=== PATIENT | female | born 1950 | race American Indian/Alaskan Native ===

== ENCOUNTER 2020-01-27 06:31 | Day surgery (SDC) | payer MEDICARE ==
[2020-01-27] MEDS ORDERED: ASPIRIN EC 325 MG TAB PO ONE (08:44)
[2020-01-27] MEDS ORDERED: SODIUM CHLORIDE 0.9% 500 ML 500 ML ONE (08:44)
[2020-01-27] MEDS ORDERED: CLOPIDOGREL 75 MG TAB ONE (09:32)
[2020-01-27] MEDS ORDERED: CLOPIDOGREL 75 MG TAB PO ONE (10:00)
[2020-01-27] MEDS ORDERED: HEPARIN/NS 5000 UNIT/500ML 1,000 ML IR ONE (10:05)
[2020-01-27] MEDS ORDERED: VERAPAMIL 5 MG/2 ML INJ ONE (10:05)
[2020-01-27] MEDS ORDERED: fentaNYL 100 MCG/2 ML INJ ONE (10:05)
[2020-01-27] MEDS ORDERED: HEPARIN 10,000 UNITS/10 ML VIAL ONE (10:05)
[2020-01-27] MEDS ORDERED: LIDOCAINE (2%) 20 MG/1 ML VIAL 20 ML MDV INFILTRATI ONE (10:05)
[2020-01-27] MEDS ORDERED: MIDAZOLAM 2 MG/2 ML INJ ONE (10:05)
[2020-01-27] MEDS ORDERED: NITROGLYCERIN SYRINGE 3 ML ONE (10:06)
--- NOTE | 2020-01-27 16:42 | Cardiac Catherization Report ---
REASON FOR PROCEDURE: Chest pain, coronary artery disease and abnormal thallium stress test. PROCEDURES: 1. Left heart catheterization. 2. Selective left and right coronary angiography. 3. Left ventricular angiography. 4. Sedation time start 10:27, end 11:06. DESCRIPTION OF PROCEDURE: The patient was prepped and draped in a sterile fashion after informed consent. The right radial cath site was prepped and draped after a negative Sy's test. The right radial artery was entered using Seldinger technique followed by placement of a 6-Albanian hydrophilic sheath. Routine radial cocktail was administered via the sheath. Selective left and right coronary angiography was performed using a #3.5 left Jelena and #4 right Jelena. A pigtail catheter was used for left ventricular angiography. The catheters were then removed, sheath removed and hemostasis achieved using a TR band. The patient was returned to the postprocedure unit in stable condition. There were no complications. FINDINGS: HEMODYNAMICS: Left ventricular end-diastolic pressure was 23, following coronary angiography. Ascending aortic pressure was 132/71. There was no significant pressure gradient on pullback across the aortic valve. CORONARY ANGIOGRAPHY: The left main coronary artery was free of significant disease. A stent was visible in the proximal to mid LAD. The stented segment was widely patent, no significant restenosis. Otherwise, mild diffuse atherosclerosis were noted of the proximal, mid and distal segments of the LAD as well as diagonal branches. Another stent was similarly found in the mid circumflex artery. The circumflex stent was also widely patent. Otherwise, mild diffuse atherosclerosis of the rest of the circumflex was noted. In addition, there was a 30-40% stenosis of the distal segment of the mid obtuse marginal, beyond this circumflex stented segment. The right coronary artery was a relatively small caliber, but dominant vessel. Another stent was located in the right coronary artery, covering the entire mid segment. The right coronary artery stent was also patent, but contained mild in-stent restenosis in its proximal third. There was an up to 20-30% luminal narrowing within the stented segment. Left ventricular systolic function was well preserved with ejection fraction of 50-55%. CONCLUSION: 1. Multivessel coronary artery disease, treated with multivessel stents. 2. Patent proximal to mid LAD stent. 3. Patent mid circumflex artery stent. 4. Patent mid right coronary artery stent, with mild in-stent restenosis. 5. Otherwise, no significant residual obstructive lesions. 6. Well preserved left ventricular systolic function, ejection fraction 50-55%. RECOMMENDATION: Aggressive risk factor modification, continue medical therapy. JOB# [id number] CA/NTS
[2020-01-29 14:32] LABS: BUN/Creatinine Ratio 20; Blood Urea Nitrogen 14 mg/dL (7-17); Calcium 8.6 mg/dL (8.4-10.2)
== END 2020-01-27 06:32 | disposition home or self-care (01) ==
LOC: CATH 06:31 → CATHLABREC 06:31
PROVIDERS: ATTEND Internal Medicine Cardiovascular Disease
DX: R07.89 Other chest pain (principal); R94.39 Abnormal result of other cardiovascular function study; I25.118 Atherosclerotic heart disease of native coronary artery with other forms of angina pectoris; T82.855A Stenosis of coronary artery stent, initial encounter; F17.210 Nicotine dependence, cigarettes, uncomplicated; E66.2 Morbid (severe) obesity with alveolar hypoventilation; E78.5 Hyperlipidemia, unspecified; K21.9 Gastro-esophageal reflux disease without esophagitis; M19.90 Unspecified osteoarthritis, unspecified site; E66.9 Obesity, unspecified; J44.9 Chronic obstructive pulmonary disease, unspecified; Z79.82 Long term (current) use of aspirin; Z72.89 Other problems related to lifestyle; Z98.61 Coronary angioplasty status; Y83.8 Other surgical procedures as the cause of abnormal reaction of the patient, or of later complication, without mention of misadventure at the time of the procedure; Y92.89 Other specified places as the place of occurrence of the external cause
CPT/HCPCS: 36415; 80048; 93005; 93458; 99156; 99157; C1894; J1644; J2250; J3010; J7040; Q9967

== ENCOUNTER 2020-12-31 21:56 | Observation (INO) | payer MEDICARE ==
--- NOTE | 2020-12-31 22:27 | Emergency Department Report ---
ED General Adult HPI - General Chief complaint: Weakness Stated complaint: LOW BLOOD COUNT/SOB PUI?: No Time Seen by Provider: 12/31/20 22:23 Source: patient Mode of arrival: Ambulatory Limitations: No Limitations - History of Present Illness Initial comments: Patient is a 70-year-old female who presents emergency with complaints of weakness, shortness of breath and low blood count. Patient states she had her blood checked at her primary care and they called her tonight because her hemoglobin was 6.0. Patient states she always is a busy monitor shortness of breath because of her cardiac conditions but lately her shortness of breath has been increased. Patient states that she has felt weak and fatigued. Patient states that her worsening shortness of breath been going on for approximately 1 week. Patient states her weakness and fatigue were going on for 1 week. Patient denies melena. Patient denies changes in her bowel habits. Patient denies change in the color of her stool. Patient denies abdominal pain. P atient denies chest pain. Patient denies headache. Patient denies loss of consciousness. Patient denies trauma. Patient states that she has never had a problem with her blood count. Patient denies nausea and vomiting. Patient states that her fatigue, weakness and shortness of breath are better with rest and worse with exertion and movement. Patient denies recent travel. Patient denies recent international travel. Patient denies exposure to the novel coronavirus. Patient denies sick contacts. Patient denies fever and chills. Patient denies cough. Patient denies diarrhea. Patient denies coming in contact with anybody with symptoms of the novel coronavirus. -: Sudden Consistency: constant Improves with: rest Worsens with: movement Associated Symptoms: malaise, shortness of breath, weakness. denies: confusion, chest pain, cough, diaphoresis, fever/chills, headaches, loss of appetite, nausea/vomiting, rash, seizure, syncope Treatments Prior to Arrival: none - Related Data Previous Rx's Medication Instructions Recorded Last Taken Type Aspirin EC [Halfprin EC] 81 mg PO QDAY #30 tablet 12/23/19 Unknown Rx AtorvaSTATin [Lipitor] 40 mg PO QHS #30 tablet 12/23/19 Unknown Rx Metoprolol Xl [Metoprolol 25 mg PO QDAY #30 tablet 12/23/19 Unknown Rx SUCCINATE ER TAB] Nicotine [Habitrol] 21 mg TD QDAY #14 patch 12/23/19 Unknown Rx Pantoprazole [Protonix TAB] 40 mg PO QDAY #30 tablet 12/23/19 Unknown Rx Allergies Allergy/AdvReac Type Severity Reaction Status Date / Time No Known Allergies Allergy Unverified 12/21/19 16:38 ED Review of Systems ROS: Stated complaint: LOW BLOOD COUNT/SOB Other details as noted in HPI Constitutional: malaise, weakness. denies: chills, fever Eyes: denies: eye pain, eye discharge, vision change ENT: denies: ear pain, throat pain Respiratory: see HPI, shortness of breath. denies: cough, wheezing Cardiovascular: denies: chest pain, palpitations Endocrine: no symptoms reported Gastrointestinal: denies: abdominal pain, nausea, diarrhea Genitourinary: denies: urgency, dysuria, discharge Musculoskeletal: denies: back pain, joint swelling, arthralgia Skin: denies: rash, lesions Neurological: as per HPI, weakness. denies: headache, paresthesias Psychiatric: denies: anxiety, depression Hematological/Lymphatic: denies: easy bleeding, easy bruising ED Past Medical Hx - Past Medical History Previous Medical History?: Yes Hx Hypertension: Yes Hx Heart Attack/AMI: Yes Hx Congestive Heart Failure: No Hx Diabetes: No Hx Arthritis: Yes Hx Asthma: No Hx COPD: No - Surgical History Past Surgical History?: Yes Hx Coronary Stent: Yes Additional Surgical History: BACK/ NECK - Family History Family history: no significant - Social History Smoking Status: Current Every Day Smoker Substance Use Type: None - Medications Home Medications: Home Medications Medication Instructions Recorded Confirmed Last Taken Type Aspirin EC [Halfprin EC] 81 mg PO QDAY #30 tablet 12/23/19 Unknown Rx AtorvaSTATin [Lipitor] 40 mg PO QHS #30 tablet 12/23/19 Unknown Rx Metoprolol Xl [Metoprolol 25 mg PO QDAY #30 tablet 12/23/19 Unknown Rx SUCCINATE ER TAB] Nicotine [Habitrol] 21 mg TD QDAY #14 patch 12/23/19 Unknown Rx Pantoprazole [Protonix TAB] 40 mg PO QDAY #30 tablet 12/23/19 Unknown Rx ED Physical Exam - General Limitations: No Limitations General appearance: alert, in no apparent distress - Head Head exam: Present: atraumatic, normocephalic - Eye Eye exam: Present: normal appearance - ENT ENT exam: Present: mucous membranes moist - Neck Neck exam: Present: normal inspection - Respiratory Respiratory exam: Present: normal lung sounds bilaterally. Absent: respiratory distress - Cardiovascular Cardiovascular Exam: Present: regular rate, normal rhythm. Absent: systolic murmur, diastolic murmur, rubs, gallop - GI/Abdominal GI/Abdominal exam: Present: soft, normal bowel sounds - Extremities Exam Extremities exam: Present: normal inspection - Back Exam Back exam: Present: normal inspection - Neurological Exam Neurological exam: Present: alert, oriented X3 - Psychiatric Psychiatric exam: Present: normal affect, normal mood - Skin Skin exam: Present: warm, dry, intact, normal color. Absent: rash ED Course Vital Signs 12/31/20 22:19 Temperature 99.0 F Pulse Rate 82 Respiratory 18 Rate Blood Pressure 120/54 O2 Sat by Pulse 100 Oximetry - Reevaluation(s) Reevaluation #1: I discussed all results with patient. I discussed plan of care with patient. P shelly agrees with plan of care and admission. Patient to be admitted to the hospitalist service. 12/31/20 23:52 - Consultations Consultation #1: Hospitalist consulted for admission. Hospitalist to admit patient. 12/31/20 23:52 ED Medical Decision Making - Lab Data Result diagrams: 12/31/20 22:48 12/31/20 22:48 - EKG Data -: EKG Interpreted by Me EKG shows normal: sinus rhythm, axis, intervals, ST-T waves Rate: normal - EKG Data Interpretation: other (Wide QRS and right bundle branch block) - Radiology Data Radiology results: report reviewed, image reviewed interpreted by me: Chest x-ray: No pneumonia, no pneumothorax, no foreign body, no osseous findings, no acute findings - Medical Decision Making Patient is a 70-year-old female that presents emergency room with complaints of shortness of breath, weakness fatigue, anemia. Patient states she saw her primary care and found to have a hemoglobin of 6. Patient states that her shortness of breath, weakness and fatigue started a week ago. Patient dates symptoms worsen. Patient states she does have basic amount of shortness of breath due to her cardiac conditions but her shortness of breath is worse. Patient denies any pain. Patient does not have a history of anemia. Patient denied melena. Patient denied any active bleeding. Patient had labs done which showed a hemoglobin of 6.5. Patient was typed and screened and is A positive. Patient transfused 1 unit of blood in the ER. Patient had an EKG which was negative for acute finding. Patient had a chest x-ray which was negative for ac fermín findings. I personally reviewed the EKG and chest x-ray. Patient admitted to the hospital service for further evaluation and treatment. Critical care time documented due to the multiple reassessments, prolonged time at the bedside, interpretation of diagnostics and labs. - Differential Diagnosis Anemia, shortness of breath, CHF, pneumonia, Critical Care Time: Yes Critical care time in (mins) excluding proc time.: 35 Critical care attestation.: If time is entered above; I have spent that time in minutes in the direct care of this critically ill patient, excluding procedure time. Critical Care Time: 35 minutes ED Disposition Clinical Impression: SOB (shortness of breath) Fatigue Qualifiers: Fatigue type: unspecified Qualified Code(s): R53.83 - Other fatigue Anemia Qualifiers: Anemia type: unspecified type Qualified Code(s): D64.9 - Anemia, unspecified Diastolic CHF Qualifiers: Heart failure chronicity: chronic Qualified Code(s): I50.32 - Chronic diastolic (congestive) heart failure Disposition: ADMITTED INPATIENT Is pt being admited?: Yes Does the pt Need Aspirin: No Condition: Critical Time of Disposition: 00:01
--- NOTE | 2020-12-31 22:58 | XRay Report ---
CHEST 1 VIEW INDICATION / CLINICAL INFORMATION: sob. weakness. FINDINGS: SUPPORT DEVICES: None. HEART / MEDIASTINUM: No significant abnormality. LUNGS / PLEURA: No significant pulmonary or pleural abnormality. No pneumothorax. ADDITIONAL FINDINGS: No significant additional findings. IMPRESSION: 1. No acute findings. Signer Name: Kane White MD Signed: 12/31/2020 10:54 PM Workstation Name: [id number]
[2020-12-31 23:17] LABS: INR 1.15 (0.87-1.13)
[2020-12-31 23:29] LABS: Hematocrit 21.1 % (30.3-42.9); Hemoglobin 6.5 gm/dl (10.1-14.3); Mean Corpuscular HGB Conc 31 % (30-34); Platelet Count 292 K/mm3 (140-440); Red Blood Count 3.18 M/mm3 (3.65-5.03)
[2020-12-31 23:30] LABS: Mean Corpuscular Volume 67 fl (79-97); Red Cell Distribution Width 21.9 % (13.2-15.2)
[2020-12-31 23:32] LABS: Alanine Aminotransferase 8 units/L (7-56); Albumin 3.7 g/dL (3.9-5); BUN/Creatinine Ratio 24; Blood Urea Nitrogen 19 mg/dL (7-17); Calcium 8.6 mg/dL (8.4-10.2); Hemolysis Index 0
[2020-12-31] MEDS ORDERED: SODIUM CHLORIDE 0.9% 500 ML 500 ML IV ONE (23:35)
[2021-01-01] MEDS ORDERED: ACETAMINOPHEN 325 MG TAB PO PRN (01:12)
[2021-01-01] MEDS ORDERED: MORPHINE 2 MG/1 ML INJ IV PRN (01:12)
[2021-01-01] MEDS ORDERED: SENNOSIDES 8.6 MG TAB PO PRN (01:12)
[2021-01-01] MEDS ORDERED: NALOXONE 0.4 MG/1 ML INJ IV PRN (01:12)
[2021-01-01] MEDS ORDERED: ONDANSETRON 4 MG/2 ML INJ IV PRN (01:12)
[2021-01-01] MEDS ORDERED: ALUM-MAG HYDROXIDE-SIMETHICONE 200-200-20MG/5ML ORAL LIQD 30 ML PO PRN (01:12)
[2021-01-01] MEDS ORDERED: MAGNESIUM HYDROXIDE (MOM) ORAL LIQD UDC PO PRN (01:12)
[2021-01-01] MEDS ORDERED: METOCLOPRAMIDE 10 MG/2 ML INJ IV PRN (01:12)
[2021-01-01] MEDS ORDERED: SODIUM CHLORIDE 0.9% 500 ML 500 ML ONE (03:08)
--- NOTE | 2021-01-01 03:49 | History and Physical Report ---
History of Present Illness Date of examination: 01/01/21 Date of admission: 01/01/21 00:01 Chief complaint: generalized weakness History of present illness: This is a 70-year-old female seen in ED at bedside. She presents to emergency room with complaints of generalized weakness, shortness of breath and low H/H/H. Patient reports history of anemia and blood transfusion. She said she was in in the doctor's office they did blood work on her and her H&H was low so she was told to come to the hospital emergency room for blood transfusion. Patient denies a history of GI bleed or changes in her bowel habits. She reported that she does not know why and no one has told her why her blood always drop. Patient admits tobacco use but denies the use of alcohol or illicit drug. Patient reported history of CHF and stent placement x5. Patient also has a past medical history of hypertension and arthritis. We will iron supplement multivitamins. Blood transfusion has been ordered and hemp-oncologist consulted. Past History Past Medical History: GERD, heart failure, hypertension, hyperlipidemia Past Surgical History: No surgical history Social history: lives with family, smoking, full code. denies: alcohol abuse, prescription drug abuse, IV drug use Family history: hypertension Medications and Allergies Allergies Allergy/AdvReac Type Severity Reaction Status Date / Time No Known Allergies Allergy Unverified 12/21/19 16:38 Home Medications Medication Instructions Recorded Confirmed Last Taken Type Aspirin EC [Halfprin EC] 81 mg PO QDAY #30 tablet 12/23/19 01/01/21 Unknown Rx AtorvaSTATin [Lipitor] 40 mg PO QHS #30 tablet 12/23/19 01/01/21 Unknown Rx Metoprolol Xl [Metoprolol 25 mg PO QDAY #30 tablet 12/23/19 01/01/21 Unknown Rx SUCCINATE ER TAB] Nicotine [Habitrol] 21 mg TD QDAY #14 patch 12/23/19 01/01/21 Unknown Rx Pantoprazole [Protonix TAB] 40 mg PO QDAY #30 tablet 12/23/19 01/01/21 Unknown Rx Active Meds: Active Medications Acetaminophen (Acetaminophen 325 Mg Tab) 650 mg PO Q4H PRN PRN Reason: Pain MILD(1-3)/Fever >100.5/ORTA Al Hydrox/Mg Hydrox/Simethicone (Alum-Mag Hydroxide-Simethicone [phone]/5ml Oral Liqd 30 Ml) 30 ml PO Q4H PRN PRN Reason: Indigestion Aspirin (Aspirin Ec 81 Mg Tab) 81 mg PO QDAY [facility] Atorvastatin Calcium (Atorvastatin 40 Mg Tab) 40 mg PO QHS [facility] Magnesium Hydroxide (Magnesium Hydroxide (Mom) Oral Liqd Udc) 30 ml PO Q4H PRN PRN Reason: Constipation Metoclopramide HCl (Metoclopramide 10 Mg/2 Ml Inj) 10 mg IV Q6H PRN PRN Reason: Nausea And Vomiting Metoprolol Succinate (Metoprolol Succinate Xl 25 Mg Tab) 25 mg PO QDAY [facility] Morphine Sulfate (Morphine 2 Mg/1 Ml Inj) 2 mg IV Q4H PRN PRN Reason: Pain, Moderate (4-6) Naloxone HCl (Naloxone 0.4 Mg/1 Ml Inj) 0.1 mg IV Q2MIN PRN PRN Reason: Res Rate </= 8 or 02 SAT < 92% Nicotine (Nicotine 21 Mg/24 Hr Patch) 21 mg TD QDAY [facility] Ondansetron HCl (Ondansetron 4 Mg/2 Ml Inj) 4 mg IV Q8H PRN PRN Reason: Nausea And Vomiting Oxycodone/Acetaminophen (Oxycodone /Acetaminophen 5-325mg Tab) 1 tab PO Q6H PRN PRN Reason: Pain, Moderate (4-6) Pantoprazole Sodium (Pantoprazole 40 Mg Tab) 40 mg PO QDAY [facility] Senna (Sennosides 8.6 Mg Tab) 8.6 mg PO Q12HR PRN PRN Reason: Constipation Sodium Chloride (Sodium Chloride 0.9% 10 Ml Flush Syringe) 10 ml IV BID [facility] Sodium Chloride (Sodium Chloride 0.9% 10 Ml Flush Syringe) 10 ml IV PRN PRN PRN Reason: LINE FLUSH Review of Systems Constitutional: anorexia, fatigue Ears, nose, mouth and throat: no epistaxis, no bleeding gums Cardiovascular: chest pain, shortness of breath Respiratory: no congestion, no wheezing Gastrointestinal: no abdominal pain, no change in bowel habits, no melena Rectal: no hemorrhoids Integumentary: no rash, no pruritis, no redness Neurological: no weakness Psychiatric: anxiety Endocrine: no weight change Hematologic/Lymphatic: no easy bruising, no easy bleeding, no lymphadenopathy, no lymphedema Allergic/Immunologic: no urticaria Exam - Constitutional Vitals: Temp Pulse Resp BP Pulse Ox 98.0 F 74 18 116/70 99 01/01/21 02:42 01/01/21 02:42 01/01/21 02:42 01/01/21 02:42 01/01/21 02:42 General appearance: Present: mild distress, obese - EENT Eyes: Present: PERRL ENT: hearing intact, clear oral mucosa - Neck Neck: Present: supple, normal ROM - Respiratory Respiratory effort: normal Respiratory: bilateral: CTA - Cardiovascular Heart Sounds: Present: S1 & S2. Absent: rub, click - Extremities Extremities: pulses symmetrical, No edema Peripheral Pulses: within normal limits - Abdominal General gastrointestinal: Present: soft, non-tender, non-distended, normal bowel sounds Female genitourinary: Present: normal - Integumentary Integumentary: Present: clear, warm, dry - Musculoskeletal Musculoskeletal: strength equal bilaterally, generalized weakness - Psychiatric Psychiatric: appropriate mood/affect, intact judgment & insight, cooperative - Neurologic Neurologic: CNII-XII intact, moves all extremities - Allied Health Allied health notes reviewed: nursing HEART Score - HEART Score Troponin: Troponin T < 0.010 ng/mL (0.00-0.029) 12/31/20 22:48 Results - Labs CBC & Chem 7: 12/31/20 22:48 12/31/20 22:48 Labs: Abnormal lab results 12/31/20 12/31/20 12/31/20 Range/Units 22:48 22:48 22:48 RBC 3.18 L (3.65-5.03) M/mm3 Hgb 6.5 L (10.1-14.3) gm/dl Hct 21.1 L (30.3-42.9) % MCV 67 L (79-97) fl MCH 20 L (28-32) pg RDW 21.9 H (13.2-15.2) % PT 15.2 H (12.2-14.9) Sec. INR 1.15 H (0.87-1.13) Chloride 107.2 H (98-107) mmol/L BUN 19 H (7-17) mg/dL Albumin 3.7 L (3.9-5) g/dL Crossmatch 12/31/20 Range/Units 22:55 RBC (3.65-5.03) M/mm3 Hgb (10.1-14.3) gm/dl Hct (30.3-42.9) % MCV (79-97) fl MCH (28-32) pg RDW (13.2-15.2) % PT (12.2-14.9) Sec. INR (0.87-1.13) Chloride (98-107) mmol/L BUN (7-17) mg/dL Albumin (3.9-5) g/dL Crossmatch See Detail Assessment and Plan - Patient Problems (1) Anemia Current Visit: Yes Status: Acute Plan to address problem: Patient has an H/h 6.5 on admission Patient reported history of anemia with blood transfusion We will transfuse packed red blood cells and will monitor H&H hemo-Oncologist consulted Check iron level and vitamin B12 level Ferrous sulfate and multivitamin supplement Patient denies history of GI bleedcheck stool for occult blood (2) Hyperlipidemia Current Visit: No Status: Acute Qualifiers: Plan to address problem: Continue statin (3) Gastroesophageal reflux disease Current Visit: No Status: Acute Qualifiers: Plan to address problem: Resume home PPI (4) Diastolic CHF Current Visit: Yes Status: Acute Qualifiers: Heart failure chronicity: chronic Qualified Code(s): I50.32 - Chronic diastolic (congestive) heart failure Plan to address problem: Continue cardioprotective measures- Patient is on room air Continue statinhold on anticoagulant due to anemia (5) Essential hypertension Current Visit: Yes Status: Acute Plan to address problem: Monitor blood pressure Continue home antihypertensive As needed hydralazine (6) DVT prophylaxis Current Visit: No Status: Acute Plan to address problem: SCDpatient anemic will hold on anticoagulant
[2021-01-01] MEDS ORDERED: hydrALAZINE 20 MG/1 ML INJ IV PRN (03:55)
[2021-01-01 05:41] LABS: Total Cells Counted 100
[2021-01-01 05:45] LABS: Anisocytosis 1+; Hypochromasia 2+
[2021-01-01 05:46] LABS: Target Cells 2+; Tear Drop Cells Few
[2021-01-01 05:47] LABS: Ovalocytes 1+
[2021-01-01 05:48] LABS: Platelet Estimate Consistent w Auto
[2021-01-01 06:44] LABS: Iron 23 ug/dL (37-170); Total Iron Binding Capacity 370 mcg/dL (250-450)
[2021-01-01 09:35] LABS: Hematocrit 22.9 % (30.3-42.9); Hemoglobin 6.8 gm/dl (10.1-14.3)
[2021-01-01] MEDS ORDERED: FERROUS SULFATE 325 MG TAB PO SCH (10:00)
--- NOTE | 2021-01-01 10:33 | Hem/Onc Consultation ---
History of Present Illness - History of Present Illness HEME DATA REVIEW CONSULT TO FOLLOW dx: anemia 70yo woman with CAD (s/p CABG), nl HCT in 2019, now with severe microcytic anemia eval for weakness, SOB. Per notes she has had RBC transfusion advised to go to [facility] for possible RBC transfusion data reviewed below Fe 23 TIBC 370, HCT 23 MCV 67 IMP: severe microcytic anemia due to iron defic presumed chronic bleeding r/o GI tract malignancy REC: RBC transfusion, then IV iron infusions eventually GI eval Laboratory Last Values WBC 7.0 K/mm3 (4.5-11.0) 12/31/20 22:48 Hgb 6.8 gm/dl (10.1-14.3) L 01/01/21 09:10 Hct 22.9 % (30.3-42.9) L 01/01/21 09:10 MCV 67 fl (79-97) L 12/31/20 22:48 Plt Count 292 K/mm3 (140-440) 12/31/20 22:48 INR 1.15 (0.87-1.13) H 12/31/20 22:48 Creatinine 0.8 mg/dL (0.6-1.2) 12/31/20 22:48 Iron 23 ug/dL (37-170) L 01/01/21 05:14 TIBC 370 mcg/dL (250-450) 01/01/21 05:14 Vitamin B12 753.8 pg/mL (211-911) 01/01/21 05:14 Crossmatch See Detail 12/31/20 22:55 Active Medications Acetaminophen (Acetaminophen 325 Mg Tab) 650 mg PO Q4H PRN PRN Reason: Pain MILD(1-3)/Fever >100.5/ORTA Al Hydrox/Mg Hydrox/Simethicone (Alum-Mag Hydroxide-Simethicone [phone]/5ml Oral Liqd 30 Ml) 30 ml PO Q4H PRN PRN Reason: Indigestion Aspirin (Aspirin Ec 81 Mg Tab) 81 mg PO QDAY [place] Atorvastatin Calcium (Atorvastatin 40 Mg Tab) 40 mg PO QHS [place] Ferrous Sulfate (Ferrous Sulfate 325 Mg Tab) 325 mg PO BID [place] Hydralazine HCl (Hydralazine 20 Mg/1 Ml Inj) 5 mg IV Q4H PRN PRN Reason: Hypertension Magnesium Hydroxide (Magnesium Hydroxide (Mom) Oral Liqd Udc) 30 ml PO Q4H PRN PRN Reason: Constipation Metoclopramide HCl (Metoclopramide 10 Mg/2 Ml Inj) 10 mg IV Q6H PRN PRN Reason: Nausea And Vomiting Metoprolol Succinate (Metoprolol Succinate Xl 25 Mg Tab) 25 mg PO QDAY [facility] Morphine Sulfate (Morphine 2 Mg/1 Ml Inj) 2 mg IV Q4H PRN PRN Reason: Pain, Moderate (4-6) Multivitamins (Multivitamins ,Therapeutic Tab) 1 each PO QDAY [facility] Naloxone HCl (Naloxone 0.4 Mg/1 Ml Inj) 0.1 mg IV Q2MIN PRN PRN Reason: Res Rate </= 8 or 02 SAT < 92% Nicotine (Nicotine 21 Mg/24 Hr Patch) 21 mg TD QDAY [facility] Ondansetron HCl (Ondansetron 4 Mg/2 Ml Inj) 4 mg IV Q8H PRN PRN Reason: Nausea And Vomiting Oxycodone/Acetaminophen (Oxycodone /Acetaminophen 5-325mg Tab) 1 tab PO Q6H PRN PRN Reason: Pain, Moderate (4-6) Pantoprazole Sodium (Pantoprazole 40 Mg Tab) 40 mg PO QDAY [facility] Senna (Sennosides 8.6 Mg Tab) 8.6 mg PO Q12HR PRN PRN Reason: Constipation Sodium Chloride (Sodium Chloride 0.9% 10 Ml Flush Syringe) 10 ml IV BID [facility] Sodium Chloride (Sodium Chloride 0.9% 10 Ml Flush Syringe) 10 ml IV PRN PRN PRN Reason: LINE FLUSH Previous Rx's Medication Instructions Recorded Last Taken Type Aspirin EC [Halfprin EC] 81 mg PO QDAY #30 tablet 12/23/19 Unknown Rx AtorvaSTATin [Lipitor] 40 mg PO QHS #30 tablet 12/23/19 Unknown Rx Metoprolol Xl [Metoprolol 25 mg PO QDAY #30 tablet 12/23/19 Unknown Rx SUCCINATE ER TAB] Nicotine [Habitrol] 21 mg TD QDAY #14 patch 12/23/19 Unknown Rx Pantoprazole [Protonix TAB] 40 mg PO QDAY #30 tablet 12/23/19 Unknown Rx Past History Past Medical History: GERD, heart failure, hypertension, hyperlipidemia Past Surgical History: No surgical history Social history: lives with family, smoking, full code. denies: alcohol abuse, prescription drug abuse, IV drug use Family history: hypertension Medications and Allergies Allergies Allergy/AdvReac Type Severity Reaction Status Date / Time No Known Allergies Allergy Unverified 12/21/19 16:38 Home Medications Medication Instructions Recorded Confirmed Last Taken Type Aspirin EC [Halfprin EC] 81 mg PO QDAY #30 tablet 12/23/19 01/01/21 Unknown Rx AtorvaSTATin [Lipitor] 40 mg PO QHS #30 tablet 12/23/19 01/01/21 Unknown Rx Metoprolol Xl [Metoprolol 25 mg PO QDAY #30 tablet 12/23/19 01/01/21 Unknown Rx SUCCINATE ER TAB] Nicotine [Habitrol] 21 mg TD QDAY #14 patch 12/23/19 01/01/21 Unknown Rx Pantoprazole [Protonix TAB] 40 mg PO QDAY #30 tablet 12/23/19 01/01/21 Unknown Rx Active Meds: Active Medications Acetaminophen (Acetaminophen 325 Mg Tab) 650 mg PO Q4H PRN PRN Reason: Pain MILD(1-3)/Fever >100.5/ORTA Al Hydrox/Mg Hydrox/Simethicone (Alum-Mag Hydroxide-Simethicone [phone]/5ml Oral Liqd 30 Ml) 30 ml PO Q4H PRN PRN Reason: Indigestion Aspirin (Aspirin Ec 81 Mg Tab) 81 mg PO QDAY [facility] Atorvastatin Calcium (Atorvastatin 40 Mg Tab) 40 mg PO QHS [facility] Ferrous Sulfate (Ferrous Sulfate 325 Mg Tab) 325 mg PO BID [facility] Hydralazine HCl (Hydralazine 20 Mg/1 Ml Inj) 5 mg IV Q4H PRN PRN Reason: Hypertension Magnesium Hydroxide (Magnesium Hydroxide (Mom) Oral Liqd Udc) 30 ml PO Q4H PRN PRN Reason: Constipation Metoclopramide HCl (Metoclopramide 10 Mg/2 Ml Inj) 10 mg IV Q6H PRN PRN Reason: Nausea And Vomiting Metoprolol Succinate (Metoprolol Succinate Xl 25 Mg Tab) 25 mg PO QDAY [facility] Morphine Sulfate (Morphine 2 Mg/1 Ml Inj) 2 mg IV Q4H PRN PRN Reason: Pain, Moderate (4-6) Multivitamins (Multivitamins ,Therapeutic Tab) 1 each PO QDAY [facility] Naloxone HCl (Naloxone 0.4 Mg/1 Ml Inj) 0.1 mg IV Q2MIN PRN PRN Reason: Res Rate </= 8 or 02 SAT < 92% Nicotine (Nicotine 21 Mg/24 Hr Patch) 21 mg TD QDAY [facility] Ondansetron HCl (Ondansetron 4 Mg/2 Ml Inj) 4 mg IV Q8H PRN PRN Reason: Nausea And Vomiting Oxycodone/Acetaminophen (Oxycodone /Acetaminophen 5-325mg Tab) 1 tab PO Q6H PRN PRN Reason: Pain, Moderate (4-6) Pantoprazole Sodium (Pantoprazole 40 Mg Tab) 40 mg PO QDAY [facility] Senna (Sennosides 8.6 Mg Tab) 8.6 mg PO Q12HR PRN PRN Reason: Constipation Sodium Chloride (Sodium Chloride 0.9% 10 Ml Flush Syringe) 10 ml IV BID [place] Sodium Chloride (Sodium Chloride 0.9% 10 Ml Flush Syringe) 10 ml IV PRN PRN PRN Reason: LINE FLUSH Exam - Constitutional Vitals: Last Vital Signs Temp 98.5 F 01/01/21 06:50 Pulse 69 01/01/21 06:50 Resp 18 01/01/21 06:50 BP 123/60 01/01/21 06:50 Pulse Ox 98 01/01/21 06:50 Results - Labs lab Results: Laboratory Results - last 24 hr 12/31/20 12/31/20 12/31/20 22:48 22:48 22:48 WBC 7.0 RBC 3.18 L Hgb 6.5 L Hct 21.1 L MCV 67 L MCH 20 L MCHC 31 RDW 21.9 H Plt Count 292 Add Manual Diff Complete Total Counted 100 Seg Neuts % (Manual) 79.0 H Lymphocytes % (Manual) 21.0 Nucleated RBC % Not Reportable Seg Neutrophils # Man 5.5 Band Neutrophils # 0.0 Lymphocytes # (Manual) 1.5 Abs React Lymphs (Man) 0.0 Monocytes # (Manual) 0.0 Eosinophils # (Manual) 0.0 Basophils # (Manual) 0.0 Metamyelocytes # 0.0 Myelocytes # 0.0 Promyelocytes # 0.0 Blast Cells # 0.0 WBC Morphology Not Reportable Hypersegmented Neuts Not Reportable Hyposegmented Neuts Not Reportable Hypogranular Neuts Not Reportable Smudge Cells Not Reportable Toxic Granulation Not Reportable Toxic Vacuolation Not Reportable Dohle Bodies Not Reportable Pelger-Huet Anomaly Not Reportable Doron Rods Not Reportable Platelet Estimate Consistent w auto Clumped Platelets Not Reportable Plt Clumps, EDTA Not Reportable Large Platelets Not Reportable Giant Platelets Not Reportable Platelet Satelliting Not Reportable Plt Morphology Comment Not Reportable RBC Morphology Not Reportable Dimorphic RBCs Not Reportable Polychromasia Not Reportable Hypochromasia 2+ Poikilocytosis Not Reportable Anisocytosis 1+ Microcytosis 1+ Macrocytosis Not Reportable Spherocytes Not Reportable Pappenheimer Bodies Not Reportable Sickle Cells Not Reportable Target Cells 2+ Tear Drop Cells Few Ovalocytes 1+ Helmet Cells Not Reportable [place] Bodies Not Reportable [place] Rings Not Reportable [place] Cells Not Reportable Bite Cells Not Reportable Crenated Cell Not Reportable Elliptocytes Few Acanthocytes (Spur) Not Reportable Rouleaux Not Reportable Hemoglobin C Crystals Not Reportable Schistocytes Not Reportable Malaria parasites Not Reportable Venu Bodies Not Reportable Hem Pathologist Commnt No PT 15.2 H INR 1.15 H Sodium 145 Potassium 4.1 Chloride 107.2 H Carbon Dioxide 22 Anion Gap 20 BUN 19 H Creatinine 0.8 Estimated GFR > 60 BUN/Creatinine Ratio 24 Glucose 98 Calcium 8.6 Iron TIBC Total Bilirubin 0.20 AST 15 ALT 8 Alkaline Phosphatase 76 Total Creatine Kinase 103 Troponin T < 0.010 Total Protein 7.0 Albumin 3.7 L Albumin/Globulin Ratio 1.1 Vitamin B12 Blood Type Antibody Screen Crossmatch 12/31/20 01/01/21 01/01/21 22:55 05:14 05:14 WBC RBC Hgb Hct MCV MCH MCHC RDW Plt Count Add Manual Diff Total Counted Seg Neuts % (Manual) Lymphocytes % (Manual) Nucleated RBC % Seg Neutrophils # Man Band Neutrophils # Lymphocytes # (Manual) Abs React Lymphs (Man) Monocytes # (Manual) Eosinophils # (Manual) Basophils # (Manual) Metamyelocytes # Myelocytes # Promyelocytes # Blast Cells # WBC Morphology Hypersegmented Neuts Hyposegmented Neuts Hypogranular Neuts Smudge Cells Toxic Granulation Toxic Vacuolation Dohle Bodies Pelger-Huet Anomaly Doron Rods Platelet Estimate Clumped Platelets Plt Clumps, EDTA Large Platelets Giant Platelets Platelet Satelliting Plt Morphology Comment RBC Morphology Dimorphic RBCs Polychromasia Hypochromasia Poikilocytosis Anisocytosis Microcytosis Macrocytosis Spherocytes Pappenheimer Bodies Sickle Cells Target Cells Tear Drop Cells Ovalocytes Helmet Cells [place] Bodies [place] Rings Butler Cells Bite Cells Crenated Cell Elliptocytes Acanthocytes (Spur) Rouleaux Hemoglobin C Crystals Schistocytes Malaria parasites Venu Bodies Hem Pathologist Commnt PT INR Sodium Potassium Chloride Carbon Dioxide Anion Gap BUN Creatinine Estimated GFR BUN/Creatinine Ratio Glucose Calcium Iron 23 L TIBC 370 Total Bilirubin AST ALT Alkaline Phosphatase Total Creatine Kinase Troponin T Total Protein Albumin Albumin/Globulin Ratio Vitamin B12 753.8 Blood Type A POSITIVE Antibody Screen Negative Crossmatch See Detail 01/01/21 09:10 WBC RBC Hgb 6.8 L Hct 22.9 L MCV MCH MCHC RDW Plt Count Add Manual Diff Total Counted Seg Neuts % (Manual) Lymphocytes % (Manual) Nucleated RBC % Seg Neutrophils # Man Band Neutrophils # Lymphocytes # (Manual) Abs React Lymphs (Man) Monocytes # (Manual) Eosinophils # (Manual) Basophils # (Manual) Metamyelocytes # Myelocytes # Promyelocytes # Blast Cells # WBC Morphology Hypersegmented Neuts Hyposegmented Neuts Hypogranular Neuts Smudge Cells Toxic Granulation Toxic Vacuolation Dohle Bodies Pelger-Huet Anomaly Doron Rods Platelet Estimate Clumped Platelets Plt Clumps, EDTA Large Platelets Giant Platelets Platelet Satelliting Plt Morphology Comment RBC Morphology Dimorphic RBCs Polychromasia Hypochromasia Poikilocytosis Anisocytosis Microcytosis Macrocytosis Spherocytes Pappenheimer Bodies Sickle Cells Target Cells Tear Drop Cells Ovalocytes Helmet Cells [place] Bodies [place] Rings Ubaldo Cells Bite Cells Crenated Cell Elliptocytes Acanthocytes (Spur) Rouleaux Hemoglobin C Crystals Schistocytes Malaria parasites Venu Bodies Hem Pathologist Commnt PT INR Sodium Potassium Chloride Carbon Dioxide Anion Gap BUN Creatinine Estimated GFR BUN/Creatinine Ratio Glucose Calcium Iron TIBC Total Bilirubin AST ALT Alkaline Phosphatase Total Creatine Kinase Troponin T Total Protein Albumin Albumin/Globulin Ratio Vitamin B12 Blood Type Antibody Screen Crossmatch
[2021-01-01] MEDS: ASPIRIN EC 81 MG TAB PO SCH (10:42)
[2021-01-01] MEDS: PANTOPRAZOLE 40 MG TAB PO SCH (10:42)
[2021-01-01] MEDS: METOPROLOL SUCCINATE XL 25 MG TAB PO SCH (10:42)
[2021-01-01] MEDS: NICOTINE 21 MG/24 HR PATCH TD SCH (10:42)
[2021-01-01] MEDS: MULTIVITAMINS ,THERAPEUTIC TAB PO SCH (10:42)
[2021-01-01] MEDS ORDERED: SODIUM CHLORIDE 0.9% 500 ML 500 ML IV SCH (12:27)
--- NOTE | 2021-01-01 12:31 | Event Note ---
Date: 01/01/21 Patient examined by me this morning. Was transfused one unit of blood. Repeat Hgb was 6.8. Iron studies also suggestive of iron deficiency anemia. Will transfuse one more unit. Patient agreeable to discharge tomorrow pending next Hgb level after transfusion.
[2021-01-01] MEDS: oxyCODONE /ACETAMINOPHEN 5-325MG TAB PO PRN (21:31)
[2021-01-02 00:48] LABS: Hematocrit 25.3 % (30.3-42.9); Hemoglobin 7.8 gm/dl (10.1-14.3); Mean Corpuscular HGB Conc 31 % (30-34); Platelet Count 288 K/mm3 (140-440); Red Blood Count 3.64 M/mm3 (3.65-5.03)
[2021-01-02 00:50] LABS: Mean Corpuscular Volume 70 fl (79-97); Red Cell Distribution Width 22.4 % (13.2-15.2)
[2021-01-02 00:57] LABS: BUN/Creatinine Ratio 19; Blood Urea Nitrogen 15 mg/dL (7-17); Calcium 8.4 mg/dL (8.4-10.2); Hemolysis Index 0
[2021-01-02 03:38] LABS: Anisocytosis 1+; Hypochromasia 1+; Total Cells Counted 100
[2021-01-02 03:39] LABS: Platelet Estimate Consistent w Auto
[2021-01-02 06:43] LABS: Alanine Aminotransferase 8 units/L (7-56); Albumin 3.4 g/dL (3.9-5); Blood Urea Nitrogen 11 mg/dL (7-17); Calcium 8.1 mg/dL (8.4-10.2); Hemolysis Index 0
[2021-01-02 06:45] LABS: BUN/Creatinine Ratio 16
--- NOTE | 2021-01-02 07:41 | Discharge Summary ---
Providers - Providers Date of Admission: 01/01/21 00:01 Date of discharge: 01/02/21 Attending physician: YEMI DAVIS MD 01/01/21 01:12 Consult to Physician [CONS] Stat Comment: Consulting Provider: SONAM CANSECO Physician Instructions: Reason For Exam: anemia Primary care physician: [facility] MD LEONIE Hospitalization Reason for admission: Low blood count Condition: Stable Hospital course: 70-year-old lady with history of anemia, CHF and coronary artery disease who reported to the ED on 01/01 after having low hemoglobin on routine outpatient lab. Hemoglobin was found to be 6.5. She was transfused 1 unit of packed red cells. Hemoglobin did not raise appropriately so a second unit was given. Hemoglobin improved to 7.8. Hematology was also consulted. Labs also showed a iron deficiency anemia. She was started on iron supplementation and advised to follow-up with PCP for outpatient GI follow-up. Disposition: HOME / SELF CARE / HOMELESS Final Discharge Diagnosis (Prints w/discharge instructions): Symptomatic anemia. Iron deficiency Time spent for discharge: 20 minutes Core Measure Documentation - Palliative Care Palliative Care/ Comfort Measures: Not Applicable - Core Measures Any of the following diagnoses?: history only Exam - Physical Exam Narrative exam: GENERAL: Well-developed well-nourished. In no acute distress. CHEST/LUNGS: CTAB on room air HEART/CARDIOVASCULAR: RRR. No murmur, rubs or gallops appreciated. ABDOMEN: +BS. NT/ND. NEURO: No focal motor deficit. Follows all commands and is ambulatory. MUSCULOSKELETAL: No joint effusion EXTREMITIES: No cyanosis, clubbing or edema. PSYCH: Cooperative. - Constitutional Vitals: Temp Pulse Resp BP Pulse Ox 97.9 F 63 16 115/69 97 01/02/21 04:17 01/02/21 04:17 01/02/21 04:17 01/02/21 04:17 01/02/21 04:17 Plan Care Plan Goals: Follow-up with primary care provider for GI consultation for colonoscopy. Iron supplementation. Assessment: Patient improved. No longer having symptoms. Hemoglobin improved to 7.8 after 10 units packed red cells. Follow up with: YOON MARCANO MD [Primary Care Provider] - 3-5 Days Prescriptions: Ferrous Sulfate [Feosol 325 MG tab] 325 mg PO QDAY 30 Days #30 tablet Benzonatate [Tessalon Perles] 100 mg PO Q8HR PRN 14 Days #42 capsule PRN Reason: Cough
[2021-01-02] MEDS ORDERED: FERROUS SULFATE 325 MG TAB PO SCH (10:00)
[2021-01-02] MEDS: oxyCODONE /ACETAMINOPHEN 5-325MG TAB PO PRN (13:52)
[2021-01-02] MEDS: ASPIRIN EC 81 MG TAB PO SCH (13:52)
[2021-01-02] MEDS: METOPROLOL SUCCINATE XL 25 MG TAB PO SCH (13:53)
[2021-01-02] MEDS: PANTOPRAZOLE 40 MG TAB PO SCH (13:54)
[2021-01-02] MEDS: MULTIVITAMINS ,THERAPEUTIC TAB PO SCH (13:54)
[2021-01-02] MEDS: NICOTINE 21 MG/24 HR PATCH TD SCH (13:55)
[2021-01-02 17:06] VITALS: BP 121/69
--- NOTE | 2021-01-04 11:00 | Electrocardiograph Report ---
[facility] Test Date: 2021-01-01 Test Time: 00:25:24 Pat Name: GINA WELCH Department: Room: A477 1 Gender: F Floral Department Specialist: FARHAT : 1950 Requested By: JASMINA CABRALES III Order Number: [id number] Reading MD: Jett Perez Measurements Intervals [place] Rate: 74 P: 62 MA: 175 QRS: 110 QRSD: 129 T: 45 QT: 414 QTc: 459 Interpretive Statements Sinus rhythm RBBB and LPFB No previous ECG available for comparison Electronically Signed On 01-04-2021 10:59:50 EDT by Jett Perez
== END 2021-01-02 17:00 | disposition home or self-care (01) ==
LOC: ED 21:56 → 4A 01-01 00:01
PROVIDERS: ADMIT Internal Medicine Geriatric Medicine; ATTEND Student in an Organized Health Care Education/Training Program
DX: D64.9 Anemia, unspecified (principal); I11.0 Hypertensive heart disease with heart failure; I50.32 Chronic diastolic (congestive) heart failure; E78.5 Hyperlipidemia, unspecified; K21.9 Gastro-esophageal reflux disease without esophagitis; R06.02 Shortness of breath; M19.90 Unspecified osteoarthritis, unspecified site; F17.210 Nicotine dependence, cigarettes, uncomplicated; R53.83 Other fatigue; Z79.82 Long term (current) use of aspirin
CPT/HCPCS: 36415; 36430; 71045; 80053; 82550; 82607; 82747; 83550; 84484; 85018; 85025; 85610; 86850; 86900; 86901; 86920; 93005; 99291; 99406; A9270; G0378; P9016; 80048; 85007

== ENCOUNTER 2021-09-13 07:47 | Day surgery (SDC) | payer MEDICARE ==
[~2021-09-13 07:47] MED LIST: SODIUM CHLORIDE 0.9% 1000 ML 1,000 ML IV SCH; WATER FOR IRRIG STERILE 1,000 ML BOTTLE ONE; WATER FOR IRRIG STERILE 250 ML BOTTLE IR ONE
--- NOTE | 2021-09-13 08:41 | Anesthesia Day of Surgery ---
Anesthesia Day of Surgery - Day of Surgery Patient Examined: Yes Patient H&P Reviewed: Yes Patient is NPO: Yes
--- NOTE | 2021-09-13 08:45 | Anesthesia Consultation ---
Anesthesia Consult and Med Hx Date of service: 09/13/21 - Airway Anesthetic Teeth Evaluation: Good ROM Head & Neck: Adequate Mental/Hyoid Distance: Adequate Mallampati Class: Class II Intubation Access Assessment: Good - Pre-Operative Health Status ASA Pre-Surgery Classification: ASA3 Proposed Anesthetic Plan: MAC - Pulmonary Hx Smoking: Yes Hx Asthma: No Hx Respiratory Symptoms: No COPD: No Hx Pneumonia: No Hx Sleep Apnea: No - Cardiovascular System Hx Hypertension: Yes Hx Coronary Artery Disease: Yes Hx Heart Attack/AMI: Yes (Stents) - Gastrointestinal Hx Gastroesophageal Reflux Disease: Yes - Endocrine Hx End Stage Renal Disease: No - Hematic Hx Anemia: Yes Hx Sickle Cell Disease: No - Other Systems Hx Alcohol Use: No (social) Hx Substance Use: No Hx Obesity: Yes - Additional Comments Anesthesia Medical History Comments: 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
[2021-09-13] MEDS ORDERED: propofoL 200 MG/20 ML VIAL IV ONE ×3 (09:08→09:42)
[2021-09-13] MEDS ORDERED: PHENYLEPHRINE/NS 1,000 MCG/10 ML SYRINGE (OR USE) IV ONE (09:21)
[2021-09-13] MEDS ORDERED: LIDOCAINE MPF (2%) 20 MG/1 ML VIAL 5 ML ONE (09:21)
--- NOTE | 2021-09-13 09:53 | Short Stay Summary ---
Short Stay Documentation Date of service: 09/13/21 Narrative H&P: The patient presents for EGD and colonoscopy to evaluate iron deficiency anemia due to chronic GI blood loss. - History Past Medical History: heart failure, hypertension, seizures Past Surgical History: No surgical history Social history: no significant social history, lives with family - Allergies and Medications Current Medications: Allergies No Known Allergies Allergy (Unverified 12/21/19 16:38) Home Medications Medication Instructions Recorded Confirmed Last Taken Type Aspirin EC [Halfprin EC] 81 mg PO QDAY #30 tablet 12/23/19 01/01/21 Unknown Rx AtorvaSTATin [Lipitor] 40 mg PO QHS #30 tablet 12/23/19 01/01/21 Unknown Rx Metoprolol Xl [Metoprolol 25 mg PO QDAY #30 tablet 12/23/19 01/01/21 Unknown Rx SUCCINATE ER TAB] Nicotine [Habitrol] 21 mg TD QDAY #14 patch 12/23/19 01/01/21 Unknown Rx Pantoprazole [Protonix TAB] 40 mg PO QDAY #30 tablet 12/23/19 01/01/21 Unknown Rx Benzonatate [Tessalon Perles] 100 mg PO Q8HR PRN 14 Days #42 01/02/21 Unknown Rx capsule Ferrous Sulfate [Feosol 325 MG tab] 325 mg PO QDAY 30 Days #30 tablet 01/02/21 Unknown Rx Active Medications Sodium Chloride (Nacl 0.9% 1000 Ml) 1,000 mls @ 50 mls/hr IV DIRECT [place] - Physical exam General appearance: no acute distress, well-nourished Integumentary: no rash, no growths, no abnormal pigmentation HEENT: Atraumatic, PERRLA, EOMI, Mucous membr. moist/pink Lungs: Clear to auscultation Breasts: deferred Heart: Regular rate, Normal S1, Normal S2, No murmurs Gastrointestinal: normoactive bowel sounds, no tenderness, no distended, no masses, no organomegaly Female Genitourinary: deferred Rectal Exam: normal exam-external/orifice, no tenderness, no mass Extremities: no ischemia, pulses intact, pulses symmetrical, No edema, normal temperature, normal color Neurological: Normal gait, Normal speech, Strength at 5/5 X4 ext, Normal tone, Sensation intact, Cranial nerves 3-12 NL - Brief post op/procedure progress note Date of procedure: 09/13/21 Procedure: see dictations Estimated blood loss: none Pathology: list (1. duodenal biopsies for celiac 2. transverse polyp- small 3 Transverse polyp by EMR 4. descending colon polyp) Specimen disposition: to lab Condition: stable - Disposition Condition at discharge: Good Disposition: 01 HOME / SELF CARE / HOMELESS - Discharge Diagnoses (1) Iron deficiency anemia due to chronic blood loss Status: Acute Short Stay Discharge Plan Activity: other Weight Bearing Status: Full Weight Bearing Diet: regular Follow up with: KEVIN ALONZO MD [Primary Care Provider] - 7 Days
--- NOTE | 2021-09-13 09:56 | Operative Report ---
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 Vieira Anesthesia: Monitored anesthesia care per anesthesia department Medications: Propofol per anesthesia Estimated blood loss: 0 After careful discussion of the nature and purpose of the procedure as well as details the technique risks benefits and alternatives consent was obtained. The patient was placed in the left lateral decubitus position and medicated per anesthesia. The tip of the [employer] mobile EQ 570 video scope was passed per orum under direct vision into the esophagus and advanced into the stomach and descending duodenum. The scope was advanced to the third portion of the duodenum. 2 small AVMs are present 2 to 3 mm in size. The mucosa appeared grossly normal. Biopsies were taken for exclusion of celiac disease. The scope was withdrawn into the stomach and the stomach then gently insufflated with air. The antrum was normal. The stomach was further insufflated and the scope was then retroflexed and partially withdrawn. The cardia and fundus of the stomach were within normal limits and easily distensible. There was a nonbleeding 4 mm AVM present on the greater curvature of the stomach. The scope was then withdrawn in the forward position. The esophagogastric junction was at 38 cm. The esophageal body was normal throughout. The procedure was was well tolerated and the patient was observed in recovery. 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 Normal-appearing upper digestive tract otherwise. Plan: Await biopsies for assessment of celiac disease. Continue iron therapy. Colonoscopy today. If no findings by colonoscopy the patient may be observed on iron therapy given the likelihood of chronic blood loss from angiodysplasia. Electronically signed: Hayder Vieira MD
--- NOTE | 2021-09-13 10:00 | Operative Report ---
Operative Report Operative Report: Date of procedure: 09/13/2021 Preprocedure diagnosis: Iron deficiency anemia secondary to chronic blood loss Post procedure diagnosis: Polyps in the transverse colon and descending colon Procedure: Colonoscopy to the cecum with #1 cold snare resection of a small transverse colon polyp, #2 endoscopic mucosal resection of a larger flat transverse polyp using injection of Orise and #3 hot snare polypectomy of a descending colon polyp Endoscopist: Dr. Vieira Anesthesia: Monitored anesthesia care per anesthesia department Estimated blood loss: 0 Medications: Monitored anesthesia care. See separate report by anesthesia for details. After careful discussion of the nature and purpose of the procedure as well as details of the technique risks benefits and alternatives the patient gave consent. Please see recent history and physical from the office. The patient was placed in the left lateral decubitus position and medicated per anesthesia. A rectal exam was performed sphincter tone was normal there were no masses palpable. The [employer] 570 scope was passed transanally and advanced under continuous direct vision without difficulty to the cecum. The colon was well prepared. The cecum was normal. The ascending colon was normal. The transverse colon revealed 2 polyps. The first polyp was 5 mm in size and pedunculated. The polyp was removed with a cold snare and retrieved by suction. A second polyp was approximately 2 cm in size and flat. This polyp was injected submucosally with Orise solution to lift the lesion. Lesion was then successfully removed in a piecemeal fashion with snare cautery. Polyp fragments were retrieved by suction. A third polyp was approximately 6 mm in size and pedunculated and present in the descending colon. The polyp was removed with snare cautery and retrieved by suction. The sigmoid colon was normal. The rectum was normal on forward and retroflexed views. The procedure was well-tolerated overall and the patient was observed in recovery. Conclusions: 3 colon polyps. 1 polyp in the transverse was removed by cold snare resection. A second transverse colon polyp was removed piecemeal by EMR technique as above and a third polyp removed with snare cautery. Plan: Await pathology. If the polyp removed by EMR proves to be precancerous, she will need a repeat colonoscopy in 6 to 12 months given piecemeal resection. Patient will call the office regarding the pathology in 1 week. Signed electronically: Hayder Vieira M.D.
--- NOTE | 2021-09-13 15:34 | Post Anesthesia Evaluation ---
- Post Anesthesia Evaluation Patient Participated: Yes Airway Patent: Yes Stable Respiratory Function: Yes Nausea/Vomiting: No Temp > 96.8F: Yes Pain Manageable: Yes Adequeate Hydration: Yes Anesthesia Complications: No Block Receding Appropriately: Not Applicable Patient on Ventilator: No
[2021-09-13 16:21] VITALS: BP 111/75
== END 2021-09-13 10:30 | disposition home or self-care (01) ==
LOC: GIO 07:47
PROVIDERS: ATTEND Internal Medicine Gastroenterology
DX: D50.0 Iron deficiency anemia secondary to blood loss (chronic) (principal); K31.89 Other diseases of stomach and duodenum; D12.3 Benign neoplasm of transverse colon; D12.4 Benign neoplasm of descending colon; K63.89 Other specified diseases of intestine; K21.9 Gastro-esophageal reflux disease without esophagitis; I10 Essential (primary) hypertension; I25.118 Atherosclerotic heart disease of native coronary artery with other forms of angina pectoris; E78.00 Pure hypercholesterolemia, unspecified; E66.9 Obesity, unspecified; M19.90 Unspecified osteoarthritis, unspecified site; F17.210 Nicotine dependence, cigarettes, uncomplicated; Z79.899 Other long term (current) drug therapy; Z79.82 Long term (current) use of aspirin; Z72.89 Other problems related to lifestyle; Z98.890 Other specified postprocedural states; Z68.41 Body mass index [BMI] 40.0-44.9, adult
CPT/HCPCS: 43239; 45381; 45385; 88305; J2370; J2704; J7030